=== PATIENT | male | born 2000 | race Two or more races ===

== ENCOUNTER 2021-06-05 11:52 | Emergency (ER) | payer SELFPAY ==
[~2021-06-05] VITALS: Ht 180.3 cm; Wt 81.6 kg
[2021-06-05 12:46] VITALS: BP 108/64
[2021-06-05] MEDS ORDERED: IBUPROFEN 800 MG TAB PO ONE (13:30)
[2021-06-05] MEDS ORDERED: PRED20TA2 PO (13:40)
[2021-06-05] MEDS ORDERED: IBUP800T27 PO (13:40)
== END 2021-06-05 13:44 | disposition home or self-care (01) ==
LOC: ER 11:52
DX: S43.401A Unspecified sprain of right shoulder joint, initial encounter (principal); S46.911A Strain of unspecified muscle, fascia and tendon at shoulder and upper arm level, right arm, initial encounter; X50.1XXA Overexertion from prolonged static or awkward postures, initial encounter; Y93.89 Activity, other specified; Y92.89 Other specified places as the place of occurrence of the external cause; Y99.8 Other external cause status
CPT/HCPCS: 73030